=== PATIENT | female | born 1990 | race Caucasian/White ===

== ENCOUNTER 2017-12-12 17:16 | Emergency (ER) | payer BC, OTHER ==
[~2017-12-12] VITALS: Ht 160 cm; Wt 100.0 kg
[2017-12-12 18:11] LABS: BASOPHILS % 0.4 % (0.0-2.0); EOSINOPHILS % 0.6 % (0.0-5.0); HEMATOCRIT. 37.8 % (36.0-48.0); HEMOGLOBIN. 12.8 g/dL (12.0-16.0); LYMPHOCYTES % 21.8 % (20.0-50.0); MEAN CORPUSCULAR HEMOGLOBIN 28.1 pg (28.0-32.0); MEAN CORPUSCULAR VOLUME 83.2 fL (81.0-99.0); MEAN PLATELET VOLUME 7.2 fl (7.4-10.4); MONOCYTES % 7.5 % (2.0-8.0); NEUTROPHILS % 69.7 % (40.0-76.0); PLATELET 382 x1000/uL (130-400); RED BLOOD CELL COUNT 4.55 mill/uL (4.2-5.4)
[2017-12-12 18:15] LABS: CHLORIDE 107 mEq/L (98-107)
[2017-12-12 18:39] LABS: B-HCG QUANTITATIVE 8529 mIU/mL (<3)
[2017-12-13 00:21] LABS: CLARITY URINE CLOUDY (CLEAR); COLOR URINE YELLOW (YELLOW); KETONES URINE 1+ (NEGATIVE); LEUKOCYTE ESTERASE URINE 1+ (NEGATIVE); NITRITE URINE NEGATIVE (NEGATIVE); OCCULT BLOOD URINE 3+ (NEGATIVE); PROTEIN URINE NEGATIVE (NEGATIVE); SPECIFIC GRAVITY URINE 1.024 (1.005-1.030)
[2017-12-13] MEDS ORDERED: RHO(D) IMMUNE GLOBULIN 300 MCG/SYR IM SCH (03:06)
[2017-12-13 03:38] VITALS: BP 125/73
== END 2017-12-13 03:40 | disposition home or self-care (01) ==
LOC: ER 17:56
DX: O20.0 Threatened abortion (principal); Z3A.01 Less than 8 weeks gestation of pregnancy
CPT/HCPCS: 36415; 36430; 76830; 76856; 80053; 81003; 81025; 84702; 85025; 86850; 86900; 90384; 96372; 99285